=== PATIENT | female | born 1990 | race Caucasian/White ===

== ENCOUNTER 2017-01-16 20:55 | Observation (INO) | payer OTHER ==
--- NOTE | 2017-01-16 21:13 | EDPHY ---
H & P Smoking Status: Never smoked Time Seen by Provider: 01/16/17 21:04 HPI/ROS: Chief complaint. Abdominal pain HPI. 26-year-old female with abdominal pain for approximately 8 hours. It is between the epigastrium and periumbilical area. It is burning without radiation. Vomiting times approximately 5 today. No diarrhea. Some constipation and hard stools. No fever. No urinary symptoms. No previous abdominal problems or previous abdominal surgery. No fever ROS Constitutional. no fever/chills, no weakness Eyes. no problems with vision ENT. no sore throat, no nasal drainage Cardiovascular. no chest pain Respiratory. no shortness of breath, no cough Abdominal. Abdominal pain and vomiting . no problems urinating MS. no calf pain/swelling, no neck/back pain, no joint pain Skin. no rash Lymph. no swollen glands Neuro. no headache, no dizziness, no difficulty walking or with speech (Damion Pope) Past Medical/Surgical History: Tendinitis in wrists and ankles (Damion Pope) Social History: Single, nonsmoker, no alcohol (Damion Pope) Physical Exam: General Appearance: Alert well-developed female moderate distress vital signs are stable Eyes: Pupils equal and round no pallor or injection. ENT, Mouth: Mucous membranes are moist. Respiratory: There are no retractions, lungs are clear to auscultation. Cardiovascular: Regular rate and rhythm. Gastrointestinal: Abdomen is soft with tenderness in the epigastric area. Increased bowel sounds. No masses. No tenderness at McBurney's point or in the lower right quadrant Neurological: Awake and alert, sensory and motor exams grossly normal. Skin: Warm and dry, no rashes. Musculoskeletal: Neck is supple nontender. Extremities symmetrical, full range of motion. Psychiatric: Patient is oriented X 3, there is no agitation. (Damion Pope S) Constitutional: Initial Vital Signs Temperature (C) 36.5 C 01/16/17 20:58 Heart Rate 59 L 01/16/17 20:58 Respiratory Rate 22 H 01/16/17 20:58 Blood Pressure 100/78 01/16/17 20:58 O2 Sat (%) 99 01/16/17 20:58 Allergies/Adverse Reactions: apple Allergy (Verified 09/10/15 12:39) Coconut Allergy (Verified 09/10/15 12:39) peanut Allergy (Verified 09/10/15 12:39) senna Allergy (Verified 09/10/15 12:39) shellfish derived Allergy (Verified 09/10/15 12:39) soy Allergy (Verified 09/10/15 12:39) tree nut [Nuts] Allergy (Verified 09/10/15 12:39) legumes Allergy (Uncoded 09/10/15 12:39) Potato Allergy (Uncoded 09/10/15 12:39) Home Medications: Medication Instructions Recorded NK [No Known Home Meds] 01/16/17 Medical Decision Making - Diagnostics Imaging: CT scan abdomen pelvis, interpreted by Dr. Sarabia. Acute appendicitis with a dilated 16 mm appendix with 2 epic list. Patient also has a ruptured ovarian cyst in the right adnexa with fluid in the cul-de-sac. (Stu Austin) Procedures: IV normal saline. Morphine for pain. Zofran for nausea (Damion Pope) ED Course/Re-evaluation: On re-evaluation at 10:20 p.m. patient continues to have pain infected seems to be coming back Skin getting worse. She has remained EKG did. Patient's test is negative. Her white blood cell count is nearly 20,000. She and I discussed further imaging with CT of her abdomen and pelvis. She expresses understanding and agreement (Damion Pope) 2234 care assumed might be from Dr. Pope. Patient presenting with periumbilical abdominal pain in a leukocytosis. She signed out to me pending CT scan of her abdomen and pelvis. [address] Jorge Luis Celis, general surgery. He will admit to his service and taken to the operating room for appendectomy. He is requesting Invanz IV at this time. I have discussed the diagnosis with the patient at length. She understands the plan and is agreement with the procedure. (Stu Austin) Differential Diagnosis: At versus sounded like possible gastroenteritis or constipation. Now I am concerned about early appendicitis. (Damion Pope) Care Turn Over: Dr. Austin at 2229. (Damion Pope) - Data Points Laboratory Results: Laboratory Results 01/16/17 21:15 01/16/17 21:15 01/16/17 01/16/17 01/16/17 21:15 21:15 21:15 WBC 19.90 10^3/uL H 10^3/uL (3.80-9.50) RBC 4.83 10^6/uL 10^6/uL (4.18-5.33) Hgb 14.8 g/dL g/dL (12.6-16.3) Hct 43.5 % % (38.0-47.0) MCV 90.1 fL fL (81.5-99.8) MCH 30.6 pg pg (27.9-34.1) MCHC 34.0 g/dL g/dL (32.4-36.7) RDW 12.3 % % (11.5-15.2) Plt Count 256 10^3/uL 10^3/uL (150-400) MPV 10.7 fL fL (8.7-11.7) Neut % (Auto) 88.0 % H % (39.3-74.2) Lymph % (Auto) 6.8 % L % (15.0-45.0) [place] % (Auto) 3.6 % L % (4.5-13.0) Eos % (Auto) 0.7 % % (0.6-7.6) Baso % (Auto) 0.4 % % (0.3-1.7) Nucleat RBC Rel Count 0.0 % % (0.0-0.2) Absolute Neuts (auto) 17.52 10^3/uL H 10^3/uL (1.70-6.50) Absolute Lymphs (auto) 1.36 10^3/uL 10^3/uL (1.00-3.00) Absolute Monos (auto) 0.72 10^3/uL 10^3/uL (0.30-0.80) Absolute Eos (auto) 0.13 10^3/uL 10^3/uL (0.03-0.40) Absolute Basos (auto) 0.07 10^3/uL 10^3/uL (0.02-0.10) Absolute Nucleated RBC 0.00 10^3/uL 10^3/uL (0-0.01) Immature Gran % 0.5 % % (0.0-1.1) Immature Gran # 0.10 10^3/uL 10^3/uL (0.00-0.10) Sodium 136 mEq/L mEq/L (134-144) Potassium 3.7 mEq/L mEq/L (3.5-5.2) Chloride 104 mEq/L mEq/L (97-110) Carbon Dioxide 21 mEq/l L mEq/l (22-31) Anion Gap 11 mEq/L mEq/L (8-16) BUN 12 mg/dL mg/dL (7-23) Creatinine 0.7 mg/dL mg/dL (0.6-1.0) Estimated GFR > 60 Glucose 84 mg/dL mg/dL (70-100) Calcium 9.3 mg/dL mg/dL (8.5-10.4) Lipase 60.0 IU/L IU/L (23-300) Beta HCG, Qual NEGATIVE Medications Given: Discontinued Medications Sodium Chloride (Ns) 1,000 mls @ 0 mls/hr IV ONCE ONE PRN Reason: Wide Open Stop: 01/16/17 21:18 Last Admin: 01/16/17 21:29 Dose: 1,000 mls Sodium Chloride (Ns) 1,000 mls @ 0 mls/hr IV ONCE ONE PRN Reason: Wide Open Stop: 01/16/17 21:30 Last Admin: 01/16/17 21:31 Dose: Not Given Sodium Chloride (Ns) 1,000 mls @ 0 mls/hr IV ONCE ONE PRN Reason: Wide Open Stop: 01/16/17 22:18 Last Admin: 01/16/17 22:22 Dose: 1,000 mls Sodium Chloride (Ns) 1,000 mls @ 0 mls/hr IV ONCE ONE PRN Reason: Wide Open Stop: 01/16/17 22:18 Last Admin: 01/16/17 22:22 Dose: Not Given Morphine Sulfate (Morphine) 6 mg IVP EDNOW ONE Stop: 01/16/17 21:18 Last Admin: 01/16/17 21:30 Dose: 6 mg Morphine Sulfate (Morphine) 6 mg IVP EDNOW ONE Stop: 01/16/17 22:18 Last Admin: 01/16/17 22:23 Dose: 6 mg Ondansetron HCl (Zofran) 4 mg IVP EDNOW ONE Stop: 01/16/17 21:18 Last Admin: 01/16/17 21:27 Dose: 4 mg Departure - Departure Disposition: [facility] Acute Clinical Impression: Acute appendicitis, Ruptured ovarian cyst Condition: Fair Referrals: NONE *PRIMARY CARE P,. [Primary Care Provider] - As per Instructions
[2017-01-16] MEDS ORDERED: NS 1,000 ML IV ONE ×4 (21:17→22:17)
[2017-01-16] MEDS ORDERED: ONDANSETRON 4 MG/2 ML VIAL IVP ONE (21:17)
[2017-01-16 21:38] LABS: % IMMATURE GRANULYOCYTES 0.5 % (0.0-1.1); ADD DIFF? NO; ADD MORPH? NO; ADD SCAN? NO; ATYPICAL LYMPHOCYTE FLAG 0 (0-99); FRAGMENT RBC FLAG 0 (0-99); HEMATOCRIT 43.5 % (38.0-47.0); HEMOGLOBIN 14.8 g/dL (12.6-16.3); LEFT SHIFT FLG 0 (0-99); LIPEMIA HEMOLYSIS FLAG 90 (0-99); MEAN CELL HEMOGLOBIN 30.6 pg (27.9-34.1); MEAN CELL VOLUME 90.1 fL (81.5-99.8); MEAN PLATELET VOLUME 10.7 fL (8.7-11.7); PLATELET CLUMPS FLAG 20 (0-99); PLATELET COUNT 256 10^3/uL (150-400); RED BLOOD CELL COUNT 4.83 10^6/uL (4.18-5.33); RED CELL DISTRIBUTION WIDTH 12.3 % (11.5-15.2)
[2017-01-16 22:16] LABS: ANION GAP 11 mEq/L (8-16); CALCIUM 9.3 mg/dL (8.5-10.4); CARBON DIOXIDE 21 mEq/l (22-31); CHLORIDE 104 mEq/L (97-110); CREATININE 0.7 mg/dL (0.6-1.0); GLOMERULAR FILTRATION RATE > 60; GLUCOSE 84 mg/dL (70-100); POTASSIUM 3.7 mEq/L (3.5-5.2); SODIUM 136 mEq/L (134-144)
[2017-01-16] MEDS ORDERED: IOPAMIDOL (ISOVUE-300) 100 ML BTL IV ONE (22:20)
[2017-01-16] MEDS ORDERED: ERTAPENEM 1 GM in NS 100 ML IV ONE (23:06)
--- NOTE | 2017-01-16 23:55 | GHP ---
[f rep st] PREOP HISTORY AND PHYSICAL DATE OF ADMISSION: 01/16/2017 CHIEF COMPLAINT: Abdominal pain. HISTORY OF PRESENT ILLNESS: This is an otherwise healthy 26-year-old female, who was in her usual state of health this morning, woke up, had breakfast, did well. Late morning began to have periumbilical pain, which persisted throughout the day. Had 1 bowel movement, which slightly relieved the pain, but the pain persisted and was associated with fevers, chills, nausea and vomiting, and progressing now relocating to somewhat the right lower quadrant. She presented to the emergency department here at [facility] for further work up. On my evaluation, she states that the pain is periumbilical at this point in time, worse with deep palpation, 7/10 in intensity without radiation. PAST MEDICAL HISTORY: None. PAST SURGICAL HISTORY: Tonsillectomy. REVIEW OF SYSTEMS: A full 10-point review was performed and unless stated above is otherwise negative. ALLERGIES: Apples, coconuts, peanuts, senna, shellfish, soy, tree nuts, legumes and potatoes. MEDICATIONS: Currently, none. PHYSICAL EXAM: VITAL SIGNS: Temperature 36.5, heart rate 59, blood pressure 100/78. She is 99% on room air. GENERAL: She is alert and oriented in mild distress. CV: She has a regular rate and rhythm without any murmurs. LUNGS: Clear. ABDOMEN: Soft, nondistended, tender to palpation in the right lower quadrant. Question rebound tenderness. No previous surgical scars. EXTREMITIES: Warm. LABORATORY DATA: Leukocytosis to 19,000 with a left shift. CT scan shows a dilated fluid-filled appendix with adjacent surrounding stranding and 2 appendicolith's present. ASSESSMENT AND PLAN: A 26-year-old female with what appears to be acute nonruptured appendicitis. I discussed the risks, benefits, and alternatives with her to proceeding to the operating room for definitive treatment. She has been n.p.o. since 10 a.m. this morning. We will plan for expedited operative exposure to remove the appendix this evening. I discussed the risks, benefits, and alternatives with her. /[id number]/MODL MTDD
[2017-01-17] MEDS ORDERED: BUPIVACAINE/EPI 0.25% 30 ML SDV ONE (00:02)
[2017-01-17] MEDS ORDERED: SKIN ADHESIVE (DERMABOND) 1 EACH TP ONE (00:02)
[2017-01-17] MEDS ORDERED: PROPOFOL 200 MG/20 ML VIAL ONE (00:13)
[2017-01-17] MEDS ORDERED: DEXAMETHASONE 4 MG/ML VIAL ONE (00:13)
[2017-01-17] MEDS ORDERED: ROCURONIUM 50 MG/5 ML VIAL ONE (00:13)
[2017-01-17] MEDS ORDERED: fentaNYL 100 MCG/2 ML INJ ONE ×2 (00:13→01:30)
[2017-01-17] MEDS ORDERED: MIDAZOLAM 2 MG/2 ML VIAL ONE (00:13)
[2017-01-17] MEDS ORDERED: ONDANSETRON 4 MG/2 ML VIAL ONE ×2 (00:13→01:18)
[2017-01-17] MEDS ORDERED: LIDOCAINE 2% 5 ML SDV ONE (00:13)
[2017-01-17] MEDS ORDERED: NEOSTIGMINE METHYLSULFATE 5 MG/5 ML SYR ONE (00:57)
[2017-01-17] MEDS ORDERED: ONDANSETRON 4 MG/2 ML VIAL IVP PRN (01:14)
[2017-01-17] MEDS ORDERED: HYDROCODONE/APAP 5/325 TAB PO PRN (01:14)
[2017-01-17] MEDS ORDERED: D5W 1/2 NS W/ 20 KCl/L 1,000 ML IV SCH (01:15)
--- NOTE | 2017-01-17 01:16 | POSTOPPROG ---
Post Op Note Date of Operation: 01/17/17 Surgeon: Jorge Luis Celis Anesthesiologist: Guillermo Anesthesia: GET(General Endotracheal) Pre-op Diagnosis: appendicitis Post-op Diagnosis: same Procedure: lap appy Findings: acute non perforated Inf/Abcess present in the surg proc area at time of surgery?: No EBL: Minimal Specimen(s): appendix
[2017-01-17 03:22] VITALS: RESP 16
[2017-01-17] MEDS: HYDROmorphONE/DILAUDID 1 MG/ML SYR IVP PRN ×2 (04:20→09:04)
[2017-01-17 06:11] VITALS: O2SAT 98
[2017-01-17 07:22] VITALS: BP 102/67; PULSE 64; TEMP 98.5
--- NOTE | 2017-01-17 10:32 | SOAPPROG ---
SOAP Progress Note Assessment/Plan: Assessment/Plan 26yo F POD#1 s/p lap appy, non-perforated - Doing well, still pretty sleepy. Pain appears well controlled but hasnt tried solid food or oral narcotics. Abdomen is soft and aTTP, incision sites are c/d/ i . Will see how the AM goes and push solid food and oral narcotics. Anticipate she will be ready to go later today but will re-evaluate early this afternoon 01/17/17 10:30 01/17/17 10:31 Subjective: Feels better, some pain. Tired. hasnt tried to eat yet Objective: Vital Signs Temp Pulse Resp BP Pulse Ox 36.9 C 64 16 102/67 98 01/17/17 07:15 01/17/17 07:15 01/17/17 07:15 01/17/17 07:15 01/17/17 07:15 01/16/17 01/17/17 01/18/17 05:59 05:59 05:59 Intake Total 2950 Output Total 5 Balance 2945 ICD10 Worksheet Patient Problems: Problems Problem Status Onset Acute appendicitis Acute Ruptured ovarian cyst Acute Mononucleosis Acute
[2017-01-17 11:27] LABS: COLOR COLORLESS; LEUKOCYTE ESTERASE,URINE NEGATIVE (NEGATIVE); NITRITE,URINE NEGATIVE (NEGATIVE)
--- NOTE | 2017-01-17 11:35 | GOP ---
[f rep st] OPERATIVE REPORT DATE OF OPERATION: 01/17/2017 SURGEON: Jorge Luis Celis MD ROAD TEST EXAMINER: None. ANESTHESIA: General endotracheal per Dr. Li. PREOPERATIVE DIAGNOSIS: Appendicitis. POSTOPERATIVE DIAGNOSIS: Appendicitis. PROCEDURE PERFORMED: Laparoscopic appendectomy. FINDINGS: Acute indurated nonperforated appendicitis. SPECIMENS: Appendix. ESTIMATED BLOOD LOSS: 5 cc. DESCRIPTION OF PROCEDURE: The patient was greeted in the preoperative suite. Once again, risks, be nefits, and alternatives were discussed. Consent was signed. She was then brought back to the oper ative suite where all anesthesia machines were on and functioning. A World Health Organization time -out was performed with patient participation ending with all in agreement. General endotracheal an esthesia was then induced without incident. Antibiotics were given on-call to the operating room. After successful induction, the patient's abdomen was prepped and draped in typical sterile fashion. I entered the abdomen using the Veress needle in the left upper quadrant and insufflated with CO2 to 15 mmHg. After achieving insufflation, I entered the abdomen using a 10 mm Visiport and a 0-degr ee laparoscope. Once successfully in the abdomen, I placed 2 successful 5 mm ports, 1 in the suprap ubic, 1 in the left lower quadrant, both under direct visualization. I identified the appendix by t racing the taeniae inferiorly. The appendix appeared indurated and swollen with some periappendicea l swelling, consistent with appendicitis. I saw no beverly perforation. I traced it down, and I crea yanna a window at the appendiceal base. I first took the mesoappendix with a single fire of the Endo- JUSTINE 45 mm white load. Once successfully taken, the mesoappendix, I turned my attention toward the b ase and amputated the appendix with a single fire of the Endo-JUSTINE blue load. I then placed the appe ndix in an EndoCatch bag and removed it. There was some oozing from the staple line of the mesoappe ndix which I had successfully dealt with using hemoclips. After obtaining hemostasis, I turned my a ttention toward the patient's pelvis. I identified her ovarian cyst. I irrigated and suctioned the fluid out of the pelvis in a standard fashion. I then checked hemostasis. It was excellent, and t vernon staple line was intact. I instilled local anesthetic into all port sites under direct visualizat ion which were then removed in the same fashion. I closed my fascial defect with a 0 [id number] t Vicryl, noting excellent fascial reapproximation. The skin was closed with running Monocryl over which Dermabond was placed. The patient was then extubated in the operative suite and taken to the PACU in satisfactory condition. DRAINS: None. COUNTS: All counts were reported as correct x2. /[id number]/MODL
--- NOTE | 2017-01-17 14:06 | GDS ---
[f rep st] DISCHARGE SUMMARY DISCHARGE DIAGNOSIS: Acute uncomplicated appendicitis. HOSPITAL COURSE: The patient was admitted from the emergency department on the evening of the 16, with CT scan proven acute appendicitis. She was taken to the operating room in the technical buyer o f the , where she underwent uneventful laparoscopic appendectomy. She was subsequently taken to the PACU and then to the general medical floor, where her pain was well controlled on oral medicati ons, and she was tolerating a regular diet on day of discharge. She was subsequently discharged john e in stable condition. DISCHARGE MEDICATIONS: Oxycodone acetaminophen 1-2 every 4-6 as needed for pain. DISPOSITION: She will follow up with me in 10-14 days for routine post hospital visit. /[id number]/MODL
== END 2017-01-17 15:30 | disposition home or self-care (01) ==
LOC: FOB 01-17 02:20
PROVIDERS: ADMIT Surgery; ATTEND Surgery
PROC: 0DTJ4ZZ Resection of Appendix, Percutaneous Endoscopic Approach (ICD-10-PCS; principal; 2017-01-17 23:30)
DX: K35.80 Unspecified acute appendicitis (principal); N83.291 Other ovarian cyst, right side
CPT/HCPCS: 44970; 74177; G0378; 96374; J1100; J1170; J1335; J2250; J2405; J2704; J2710; J3010; Q9967

== ENCOUNTER → 2018-08-18 | Outpatient (CLI) | payer OTHER | LOC: BMCIMAGING 14:40 → EDSTATUS 14:40 → BMCIMAGING 14:41 | PROVIDERS: ATTEND Emergency Medicine | DX: M62.838 Other muscle spasm (principal) ==